=== PATIENT | male | born 1995 | race Asian ===

== ENCOUNTER 2020-03-31 | Emergency (ER) | payer SELFPAY ==
[~2020-03-31] VITALS: Ht 188 cm; Wt 78.0 kg
[2020-03-31] MEDS ORDERED: IBUPROFEN 600MG TABLET PO STA (01:39)
[2020-03-31 04:37] VITALS: BP 122/87
== END 2020-03-31 05:12 | disposition home or self-care (01) ==
LOC: ER 00:19
DX: S00.03XA Contusion of scalp, initial encounter (principal); S00.01XA Abrasion of scalp, initial encounter; M54.9 Dorsalgia, unspecified; V43.62XA Car passenger injured in collision with other type car in traffic accident, initial encounter; Y93.89 Activity, other specified; Y92.410 Unspecified street and highway as the place of occurrence of the external cause
CPT/HCPCS: 72100; 99284